=== PATIENT | male | born 1960 | race Caucasian/White ===

== ENCOUNTER 2025-07-08 12:25 | Emergency (ER) | payer OTHER, SELFPAY ==
[2025-07-08 12:27] VITALS: BP 168/103
[2025-07-08 12:34] LABS: Glucose - Point of Care > 600 mg/dl (70-99)
--- NOTE | 2025-07-08 12:48 | ED.GENMED ---
History of Present Illness
General
Chief Complaint: Blood Sugar Problem
Source: patient
Time Seen by Provider: 07/08/25 12:40
History of Present Illness
History of Present Illness:
This patient is a 65-year-old male with a history of type 2 diabetes, does not take insulin. He was placed on metformin and glipizide which he is compliant with. Then, the glipizide was discontinued and he was placed on Ozempic. Back he also
continued his metformin at that time. However, after 6 months of being on Ozempic he could no longer tolerate the side effects and discontinued it a few months ago. He did not resume his glipizide at that time. For the last few weeks he says he
has been feeling 'off', described as generally weak and foggy with loss of appetite and feeling like things do not taste right. He checks his blood sugar at home and noted it was elevated. He went to his PCP a few days ago and was told to restart
the glipizide which he did. However, he did not eat anything today and his blood sugar was noted to be 500 at home which prompted his visit here. He denies any pain. He denies chest pain, abdominal pain, nausea, vomiting, fever, chills, headache,
dizziness, bleeding, dyspnea, swelling, or other complaints.
Past History
Past History
ED Past Medical History: HTN, Hypercholesterolemia and NIDDM
Social History
Tobacco: Smoker
Alcohol: Occasional
Drug: None
Living: alone
Phy Exam
Physical Exam
Physical Exam:
GENERAL: Alert , in no apparent distress
EYE: pupils equal and reactive
NECK: Supple, no significant adenopathy.
ENT: o/p clr, mm very dry
CARDIAC: Regular rate and rhythm .
LUNGS: Clear breath sounds bilaterally, no acute respiratory distress, no wheezes/rales/rhonchi
ABDOMEN: Soft, without focal tenderness, no r/g, no cvat
NEUROLOGICAL: Alert and oriented, no focal neuro deficits
SKIN: Warm and dry, skin intact.
MUSCULOSKELETAL: No edema, well perfused.
PSYCH: Normal and appropriate interaction.
Course
Orders/Labs/Results
Orders:
Orders
07/08/25 12:47
Bedside Glucose- Treatment Q1H
IV Insert/Care/Rem.- Treatment PRN
0.9% Sodium Chloride 1000 ml [Nss] 1,000 ml IV BOLUS
0.9% Sodium Chloride 1000 ml [Nss] 1,000 ml IV BOLUS
07/08/25 12:48
Electrocardiogram (*1) Urgent
Reason for Study: Other
Other Reason for Exam: hyperglycemia
EKG- Treatment ONCE
07/08/25 13:07
B-Hydroxybutyrate Urgent
Basic Metabolic Panel Q2H
Complete Blood Count/With Diff Urgent
Serum Osmolality Urgent
Comment: ADD ON
07/08/25 13:53
Insulin Human Regular [Novolin R] 10 units SC NOW STA
07/08/25 13:59
Add On- LAB Urgent
Tests Added?: serum osmalality
07/08/25 14:07
Urinalysis Urgent
Date Specimen was Collected: 07/08/25
Time Specimen was Collected: 13:18
Urine Microscopic Urgent
Date Specimen was Collected: 07/08/25
Time Specimen was Collected: 13:18
07/08/25 16:13
Basic Metabolic Panel Q2H
07/08/25 17:00
Basic Metabolic Panel Q2H
07/08/25 17:20
Insulin Human Regular [Novolin R] 6 units SC NOW STA
Abnormal Lab Results
07/08/25 07/08/25 07/08/25
12:33 13:07 14:07
MPV 10.5 H fL
(7.4-10.4)
Absolute Neuts (auto) 7.1 H 10^3/uL
(1.4-6.5)
Absolute Monos (auto) 0.7 H 10^3/uL
(0.1-0.6)
Lymphocytes % 18.3 L %
(20.5-51.1)
Sodium 129 L mmol/L
(135-145)
Chloride 95 L mmol/L
(98-107)
BUN 23 H mg/dl
(9-20)
Glucose 515 H* mg/dl
(70-99)
Serum Osmolality 308 H mOsm/kg
(275-300)
Urine Ketones 1+ A
(Negative)
Urine Occult Blood 1+ A
(Negative)
Urine Glucose 4+ A
(Negative)
Urine Albumin 1+ A
(Neg - Trace)
B-Hydroxybutyrate 0.38 H mmol/L
(0.02-0.27)
POC Glucose > 600 H* mg/dl
(99)
07/08/25 07/08/25 07/08/25
14:40 16:13 16:19
MPV
Absolute Neuts (auto)
Absolute Monos (auto)
Lymphocytes %
Sodium 132 L mmol/L
(135-145)
Chloride
BUN
Glucose 360 H mg/dl
()
Serum Osmolality
Urine Ketones
Urine Occult Blood
Urine Glucose
Urine Albumin
B-Hydroxybutyrate
POC Glucose 349 H mg/dl 336 H mg/dl
(70-99) (-99)
07/08/25 07/08/25
17:25 17:33
MPV
Absolute Neuts (auto)
Absolute Monos (auto)
Lymphocytes %
Sodium
Chloride
BUN
Glucose
Serum Osmolality
Urine Ketones
Urine Occult Blood
Urine Glucose
Urine Albumin
B-Hydroxybutyrate
POC Glucose 318 H mg/dl 358 H mg/dl
(70-99) (70-99)
07/08/25 13:07
Vital Signs
Initial and Last Documented VS:
Initial Vital Signs
Temp Pulse Resp BP Pulse Ox
99.1 F 84 20 168/103 98
07/08/25 12:27 07/08/25 12:27 07/08/25 12:27 07/08/25 12:27 07/08/25 12:27
Last Documented Vital Signs
Temp Pulse Resp BP Pulse Ox
99.1 F 83 15 135/115 95
07/08/25 12:27 07/08/25 16:45 07/08/25 16:45 07/08/25 16:00 07/08/25 16:45
*Pulse Oximetry
SaO2: 98
Oxygen Mode of Delivery: Room air
Patient hypoxic: no
*Critical Care Note
Total Time (30-74mins, 75-104mins- exclusive of procedures): Not Applicable
Update Note
Update Note:
Patient presents to the Emergency Department with ___hyperglycemia, fatigue
Number and Complexity of Problems Addressed at the Encounter
� Chronic conditions affecting care:
� Acute Exacerbation and/or Progression of Chronic Illness:
� Differential Diagnosis includes: But not limited to HHNK, DKA, hypoglycemia, electrolyte disorder, etc. etc.
Amount and/or Complexity of Data to be Reviewed and Analyzed
� I performed an independent evaluation of and my interpretation is:
EKG:
CT:
Xrays:
Laboratory Studies: Labs noted here, dilutional hyponatremia related to hyperglycemia, normal white blood cell count, potassium within normal limits, no acidosis noted.
Other:
� Review of other/old records reveals: Discharge summary reviewed from 2010 patient was admitted with diverticulitis with micro perforation and an intra-abdominal abscess
� Clinical information was obtained by an independent historian:
� Prescriptions/Medications Considered but not given:
� Further testing considered but not performed:
Risk of Complications and/or Morbidity or Mortality of Patient Management
� Social determinants of health affecting care:
� Discussion with other providers (PCP, Hospitalists, Consultants, etc):
� Escalation of care including admission/observation vs risk of discharge considered: Patient resting comfortably, no mental status change, no nausea or vomiting. Hyperglycemia is slowly being corrected here, IV fluids infused,
insulin subcu. He did not take his morning oral hypoglycemics and he will be instructed to resume them. Does not fit clinical criteria for DKA/HHNK. No signs or symptoms to suggest ischemia, infection, etc.
Prolonged observation here, patient awake alert comfortable watching TV smiling without any complaints states he feels significantly better. He did not take his morning diabetes medications. I encouraged him to resume these medicines immediately
and follow-up with his doctor tomorrow.
ED Attending Note
-
Portions of this chart may have been created with voice recognition software.� Occasional wrong word or��sound alike� substitutions may have occurred due to the inherent limitations of voice recognition software.
Discharge Plan
Departure
Patient Disposition: Home (Routine Discharge)
Date of Disposition: 07/08/25
Time of Disposition: 17:44
Patient with high blood pressure during this ER visit?: Yes
Condition: Good
Discharge Problem:
Hyperglycemia
Instructions: High blood sugar in adults - ED (DC), BLOOD PRESSURE
Prescriptions:
No Action
atorvastatin 10 mg Tablet
10 mg PO DAILY
citalopram 10 mg Tablet
10 mg PO DAILY
doxycycline monohydrate 100 mg Tablet
100 mg PO BID
Patient Comments:
07/06/25 x7 DAYS
metformin 1,000 mg Tablet
1,000 mg PO BID@
hydrochlorothiazide 25 mg Tablet
25 mg PO DAILY
losartan 100 mg Tablet
100 mg PO DAILY
glipizide 10 mg Tablet
10 mg PO BID@
Referrals:
Main Donahue MD [Family Provider, Internal Medicine] - Tomorrow
Activity Restrictions/Additional Instructions:
TAKE YOUR DIABETES MEDICATION DIRECTED. SEE YOUR DOCTOR IN CLOSE FOLLOW UP TOMORROW. IF YOU DEVELOP FEVER, CHEST PAIN, TROUBLE BREATHING, DIZZINESS, VOMITING, PERSISTENTLY ELEVATED BLOOD SUGAR, OR OTHER WORRISOME SIGNS, GO TO THE ER IMMEDIATELY!
Interventions
Interventions:
*Risk Screen - Suicide Last Done: 07/08/25 12:27
*Neglect/Abuse Screening Last Done: 07/08/25 12:27
*ED- Fall Risk Assessment Last Done: 07/08/25 13:23
*ED COVID-19 Vaccine History Last Done: 07/08/25 13:23
*ED Influenza Vaccine History Last Done: 07/08/25 13:23
ED- Neurological Assessment Last Done: 07/08/25 13:23
Discharge Date and Time
Print Language: PARAGUAYAN
[2025-07-08 12:54] VITALS: BP 123/100
[2025-07-08 13:00] VITALS: BP 143/101
[2025-07-08] MEDS: NSS 1000 IV ×2 (13:11)
[2025-07-08 13:12] VITALS: BMI 29.4
[2025-07-08 13:28] LABS: Hematocrit 46.8 % (39.0-52.0); Hemoglobin 16.4 g/dL (13.0-18.0); Mean Corp Hgb Conc. 35.0 g/dL (33.0-37.0); Mean Corpuscular Volume 84.5 fL (80.0-94.0); Nucleated Red Blood Cells % 0 % (-); Platelet Count 304 10^3/uL (130-400); Red Cell Dist. Width 12.6 % (11.5-14.5)
[2025-07-08 13:49] LABS: Blood Urea Nitrogen 23 mg/dl (9-20); Calcium 9.7 mg/dl (8.4-10.2); Carbon Dioxide 30 mmol/L (22-30); Chloride 95 mmol/L (98-107); Estimated Creatinine Clearance 77 ml/min; Glucose 515 mg/dl (70-99); Potassium 4.8 mmol/L (3.5-5.1); Sodium 129 mmol/L (135-145); eGFR > 60.00
[2025-07-08 14:00] VITALS: BP 152/88
[2025-07-08] MEDS: NOVOLIN R 10 UNITS SC (14:13)
[2025-07-08 14:15] LABS: Urine Character Clear (Clear)
[2025-07-08 14:30] LABS: Urine Squamous Cell 0-2 /LPF (Few)
[2025-07-08 14:32] LABS: Urine Red Blood Cell 0-2 /HPF (0-2); Urine Urothelial Cell 0-2 /LPF (FEW)
[2025-07-08 14:42] LABS: Glucose - Point of Care 349 mg/dl (70-99)
[2025-07-08 16:00] VITALS: BP 135/115
[2025-07-08 16:21] LABS: Glucose - Point of Care 336 mg/dl (70-99)
[2025-07-08 16:38] LABS: Blood Urea Nitrogen 20 mg/dl (9-20); Calcium 8.8 mg/dl (8.4-10.2); Carbon Dioxide 28 mmol/L (22-30); Chloride 101 mmol/L (98-107); Estimated Creatinine Clearance 96 ml/min; Glucose 360 mg/dl (70-99); Potassium 4.2 mmol/L (3.5-5.1); Sodium 132 mmol/L (135-145); eGFR > 60.00
[2025-07-08 17:27] LABS: Glucose - Point of Care 318 mg/dl (70-99)
[2025-07-08 17:36] LABS: Glucose - Point of Care 358 mg/dl (70-99)
== END 2025-07-08 18:00 | disposition home or self-care (01) ==
LOC: EMR 12:25
PROVIDERS: EMERGENCY PHYSICIAN Emergency Medicine; FAMILY PHYSICIAN Internal Medicine
DX: E11.65 Type 2 diabetes mellitus with hyperglycemia (principal); I10 Essential (primary) hypertension; E78.00 Pure hypercholesterolemia, unspecified; F17.200 Nicotine dependence, unspecified, uncomplicated; Z79.84 Long term (current) use of oral hypoglycemic drugs; Z79.85 Long-term (current) use of injectable non-insulin antidiabetic drugs
CPT/HCPCS: 99284; 96360; 96361; 96372; 80048; 81003; 81015; 82010; 82962; 83930; 85025; 93005